=== PATIENT | female | born 1980 | race Caucasian/White ===

== ENCOUNTER 2025-01-28 13:58 | Emergency (ER) | payer OTHER, SELFPAY ==
[2025-01-28 14:14] VITALS: BP 141/92; BMI 33.5
[2025-01-28 14:19] LABS: Hematocrit 40.8 % (37.0-47.0); Hemoglobin 13.9 g/dL (12.0-16.0); Mean Corp Hgb Conc. 34.1 g/dL (33.0-37.0); Mean Corpuscular Volume 82.6 fL (81.0-99.0); Nucleated Red Blood Cells % 0 %; Platelet Count 278 10^3/uL (130-400); Red Cell Dist. Width 13.7 % (11.5-14.5)
[2025-01-28 14:31] LABS: ALT (SGPT) 26 U/L (0-35); AST (SGOT) 27 U/L (14-36); Albumin 4.9 g/dl (3.5-5.0); Alkaline Phosphatase 72 U/L (38-126); Blood Urea Nitrogen 11 mg/dl (7-17); Calcium 9.7 mg/dl (8.4-10.2); Carbon Dioxide 24 mmol/L (22-30); Chloride 106 mmol/L (98-107); Estimated Creatinine Clearance > 125 ml/min; Glucose 104 mg/dl (70-99); Potassium 4.0 mmol/L (3.5-5.1); Sodium 136 mmol/L (135-145); Total Protein 8.5 g/dl (6.3-8.2); eGFR > 60.00
[2025-01-28 14:42] LABS: Troponin I < 0.012 ng/ml
--- NOTE | 2025-01-28 14:59 | ED.GENMED ---
History of Present Illness
General
Chief Complaint: Chest Pain
Source: patient
Exam Limitations: none
Time Seen by Provider: 01/28/25 14:03
Nursing documentation reviewed up to this point in time: agreed with
History of Present Illness
History of Present Illness:
44-year-old female drinker every day, chronic pain patient on Suboxone 16 mg a day has been incarcerated for about 24 hours developed pain in her chest, mild nausea no shortness of breath, states the pain started last evening is better now, no fever
or chills, does not think she is on any meds for narcotic nor alcohol withdrawal, requesting Ativan, no history of CAD or blood clots
Past History
Past History
ED Past Medical History: Psychiatric and Other (ADHD)
ED Past Surgical History: Orthopedic (Left ankle surger)
Social History
Tobacco: Smoker
Alcohol: Daily
Drug: Narcotics
Personal:
Living: [facility]
Employment: Not employed
Review of Systems
Review of Systems
All Other Systems: Not applicable
Constitutional: Denies fever or fatigue
Respiratory: Denies trouble breathing
Cardiac: Denies chest pain
ABD/GI: Reports nausea; Denies abdominal pain
: Reports no symptoms
Musculoskeletal: Reports no symptoms
Neurological: Reports no symptoms
Endocrine: Reports no symptoms
Hematologic/Lymphatic: Reports no symptoms
Psychiatric: Reports anxiety
Phy Exam
Physical Exam
Physical Exam:
Physical Exam
General: no apparent distress, not acutely ill
Neck: No jaundice
Heart: s1/s2 regular rate and rhythm, no murmur. equal radial pulses.
Lungs: no acute respiratory distress. clear bilaterally
Abdomen: normal bowel sounds. not tender. no CVAT
Neuro: alert and oriented. no focal neurological deficits
Skin: no rash
Psychiatric: well kept. interactive and cooperative
Extremities: no edema. no calf tenderness.
Scores
Heart Score for Chest Pain Patients
STEMI patient?: No
History: Slightly or Non-Suspicious
ECG: Normal
Age: </= 45 years
Risk Factors: 1 or 2 Risk Factors
Troponin: </= Normal Limit
Heart Score for Chest Pain Patients: 1
Heart Score Risk: 2.5% MACE over next 6 weeks
Course
Orders/Labs/Results
Orders:
Orders
01/28/25 13:59
Electrocardiogram (*1) Urgent
Reason for Study: Chest Pain
CXR2 [CR Chest - 2 Views ] Urgent
Comment:
Reason For Exam: chest pain
01/28/25 14:00
EKG- Treatment ONCE
01/28/25 14:04
Complete Blood Count/With Diff Urgent
Comprehensive Metabolic Panel Urgent
HCG, Serum Qualitative Screen Urgent
Comment: ADD ON
Troponin I Urgent
01/28/25 14:50
Diazepam [Valium] 5 mg PO NOW STA
01/28/25 14:51
Add On- LAB Urgent
Tests Added?: hcg serum qualitative
0.9% Sodium Chloride 1000 ml [Nss] 1,000 ml IV BOLUS
Pantoprazole [Protonix IV] 40 mg IV NOW STA
Abnormal Lab Results
01/28/25
14:04
Lymphocytes % 19.4 L %
(20.5-51.1)
Creatinine 0.5 L mg/dL
(0.6-1.0)
Glucose 104 H mg/dl
(70-99)
Total Protein 8.5 H g/dl
(6.3-8.2)
01/28/25 14:04
01/28/25 14:04
Vital Signs
Initial and Last Documented VS:
Initial Vital Signs
Pulse Resp Pulse Ox
80 11 100
01/28/25 14:12 01/28/25 14:12 01/28/25 14:12
Last Documented Vital Signs
Temp Pulse Resp BP Pulse Ox
98.0 F 109 14 141/92 100
01/28/25 14:14 01/28/25 14:15 01/28/25 14:15 01/28/25 14:14 01/28/25 15:00
MDM/Problems Addressed
Differential Diagnosis Includes:
Gastritis pancreatitis doubt ACS perhaps drug withdrawal, alcohol withdrawal
MDM/Problems Addressed:
Chest pain
Chronic conditions affecting care:
Alcoholism, drug addiction incarceration
Chronic conditions affecting care: Psychiatric illness
Acute Exacerbation and/or Progression of Chronic Illness:
Alcoholism drug
Acute Exacerbation and/or Progression of Chronic Illness: Psychiatric illness
*Radiology
Radiology exam reviewed: preliminary read by ED provider
*Pulse Oximetry
SaO2: 100
Oxygen Mode of Delivery: Room air
Patient hypoxic: no
*EKG
Interpreted by ED Provider?: Yes
Interpretation: normal
Comparison EKG: no comparison EKG present
Heart Rate: 78
Rate: normal
Ischemia: no ischemia
*Director Consumer Interpretation
Rate: normal
Interpretation: normal
Heart Rate: 78
Rhythm: sinus
*Critical Care Note
Total Time (30-74mins, 75-104mins- exclusive of procedures): Not Applicable
Update Note
Update Note:
3:30 PM workup noted, patient medically clear for incarceration
ED Attending Note
-
Portions of this chart may have been created with voice recognition software.� Occasional wrong word or��sound alike� substitutions may have occurred due to the inherent limitations of voice recognition software.
Discharge Plan
Departure
Patient Disposition: Jail
Date of Disposition: 01/28/25
Time of Disposition: 15:31
Patient with high blood pressure during this ER visit?: No
Condition: Good
Discharge Problem:
Chest pain
Instructions: Chest Pain PCP Follow Up
Prescriptions:
No Action
quetiapine 300 mg Tablet
300 mg PO HS
quetiapine 100 mg Tablet
100 mg PO DAILY
buprenorphine-naloxone [Suboxone] 8-2 mg Tablet, Sublingual
1 tab SUBLINGUAL DAILY
Activity Restrictions/Additional Instructions:
Juanita is medically clear for incarceration
Interventions
Interventions:
*Risk Screen - Suicide Last Done: 01/28/25 14:14
*General Assessment Last Done: 01/28/25 14:14
*Neglect/Abuse Screening Last Done: 01/28/25 14:14
*ED- Fall Risk Assessment Last Done: 01/28/25 14:14
*ED COVID-19 Vaccine History Last Done: 01/28/25 14:14
ED- Cardiac Assessment Last Done: 01/28/25 14:14
Discharge Date and Time
Print Language: ALBANIAN
[2025-01-28 15:17] LABS: HCG, Serum Qualitative Screen Negative
[2025-01-28] MEDS: VALIUM 5 MG PO (15:18)
[2025-01-28] MEDS: PROTONIX IV 40 MG IV (15:18)
[2025-01-28] MEDS: NSS 1000 IV (15:19)
== END 2025-01-28 16:06 ==
LOC: EMR 13:58
PROVIDERS: EMERGENCY PHYSICIAN Emergency Medicine
DX: R07.9 Chest pain, unspecified (principal); F10.20 Alcohol dependence, uncomplicated; G89.29 Other chronic pain; F90.9 Attention-deficit hyperactivity disorder, unspecified type; F17.200 Nicotine dependence, unspecified, uncomplicated
CPT/HCPCS: 99284; 96374; 96361; 71046; 80053; 84484; 84703; 85025; 93005